=== PATIENT | male | born 1990 | race Caucasian/White ===

== ENCOUNTER 2017-10-20 18:20 | Emergency (ER) | payer MEDICAID, OTHER ==
[2017-10-20 18:30] VITALS: BP 157/83; PULSE 73; RESP 20; TEMP 98.8; O2SAT 100
--- NOTE | 2017-10-20 19:10 | C.PDOC ---
History Of Present Illness Patient is a 28 y/o male who presents to the ED with complaints of sore throat, subjective fever, body aches, decreased appetite and nasal congestion since yesterday. Patient denies cough or receiving a flu shot. No other physical complaints at this time. Time Seen by Provider: 10/20/17 19:00 Chief Complaint (Nursing): Flu-like Symptoms History Per: Patient History/Exam Limitations: no limitations Onset/Duration Of Symptoms: Days (yesterday) Current Symptoms Are (Timing): Still Present Associated Symptoms: Fever (subjective), Sore Throat, Nasal Congestion. denies : Cough Recent travel outside of the [place]: No Past Medical History Reviewed: Historical Data, Nursing Documentation, Vital Signs Vital Signs: Last Vital Signs Temp 98.8 F 10/20/17 18:27 Pulse 73 10/20/17 18:27 Resp 20 10/20/17 18:27 BP 157/83 H 10/20/17 18:27 Pulse Ox 100 10/20/17 19:20 - Medical History PMH: Asthma Surgical History: No Surg Hx Family History: States: No Known Family Hx - Social History Hx Tobacco Use: No Hx Alcohol Use: No Hx Substance Use: No - Immunization History Hx Tetanus Toxoid Vaccination: No Hx Influenza Vaccination: No Hx Pneumococcal Vaccination: No Review Of Systems Except As Marked, All Systems Reviewed And Found Negative. Constitutional: Positive for: Fever (subjective) ENT: Positive for: Nose Congestion, Throat Pain Musculoskeletal: Positive for: Other (body aches) Physical Exam - Physical Exam Appears: Well, Non-toxic, No Acute Distress Skin: Normal Color, Warm, Dry Head: Atraumatic, Normacephalic Oral Mucosa: Moist Throat: Erythema (pharyngeal), No Exudate Chest: Symmetrical Cardiovascular: Rhythm Regular, No Murmur Respiratory: Normal Breath Sounds, No Rales, No Rhonchi, No Wheezing Gastrointestinal/Abdominal: Soft, No Tenderness Neurological/Psych: Oriented x3, Normal Speech, Normal Cognition ED Course And Treatment O2 Sat by Pulse Oximetry: 100 Medical Decision Making Medical Decision Making: Plan: * Tylenol * Tamiflu * * [facility] for flu will treat lung cta bl speaking full sentences, Disposition - Disposition Disposition: HOME/ ROUTINE Disposition Time: 19:08 Condition: STABLE Additional Instructions: please follow up with your doctor. return to er with worsening symptoms or concerns. Prescriptions: Oseltamivir Phosphate [Tamiflu] 75 mg PO BID #10 capsule Instructions: Influenza (ED) Forms: [facility] [employer] [facility] ([place]) - Clinical Impression Clinical Impression: Influenza-like illness - Scribe Statement The provider has reviewed the documentation as recorded by the Scribe Nancy Mauro All medical record entries made by the Scribe were at my direction and personally dictated by me. I have reviewed the chart and agree that the record accurately reflects my personal performance of the history, physical exam, medical decision making, and the department course for this patient. I have also personally directed, reviewed, and agree with the discharge instructions and disposition.
== END 2017-10-20 19:50 | disposition home or self-care (01) ==
LOC: C.ER 18:20
DX: J11.1 Influenza due to unidentified influenza virus with other respiratory manifestations (principal)